=== PATIENT | male | born 1965 | race Caucasian/White ===

== ENCOUNTER → 2019-08-03 08:07 | Outpatient (CLI) | payer OTHER, SELFPAY ==
[2019-02-21 12:06] VITALS: BMI 31.6
== END ==
PROVIDERS: Family Provider Student in an Organized Health Care Education/Training Program; PCP Student in an Organized Health Care Education/Training Program; Referring Provider Physician Assistant Surgical; Visit Provider Physician Assistant Surgical
DX: Z00.00 Encounter for general adult medical examination without abnormal findings (principal); Z11.1 Encounter for screening for respiratory tuberculosis

== ENCOUNTER 2023-08-14 22:30 | Emergency (ER) | payer BC, SELFPAY ==
[2023-08-14 22:31] VITALS: BP 161/97; PULSE 89; RESP 16; TEMP 36.2; O2SAT 96; BMI 28.7
--- NOTE | 2023-08-14 23:09 | CT_ITS ---
EXAM: CT MAXILLOFACIAL WITHOUT INTRAVENOUS CONTRAST CLINICAL INDICATION: trauma, left face TECHNIQUE: Helically acquired images were obtained of the face without intravenous contrast. This CT exam was performed using one or more of the following dose reduction techniques: automated exposure control, adjustment of the mA and/or kV according to patient size, and/or use of iterative reconstruction technique. RADIATION DOSE: CTDIvol = 29.38 mGy, DLP = 576.84 mGy-cm COMPARISON: No relevant prior studies available. FINDINGS: BONES/JOINTS: Unremarkable. No displaced fracture. No discrete lytic or blastic abnormalities. SOFT TISSUES: Left periorbital, maxillary, mandibular soft tissue swelling, as well as a subcutaneous hematoma in the left maxillary region measuring 3.3 x 3 cm. ORBITS: Unremarkable. Both globes are unremarkable. Extraocular muscles are normal. Retrobulbar fat appears unremarkable. SINUSES: Unremarkable as visualized. Clear. MASTOID AIR CELLS: Unremarkable as visualized. Clear. CT/Sinus/Facial Bone IMPRESSION: 1. Left periorbital, maxillary, mandibular soft tissue swelling, as well as a subcutaneous hematoma in the left maxillary region measuring 3.3 x 3 cm. 2. No facial fractures. Electronically Signed: Elieser Carson MD at 23:49 EDT ,
--- NOTE | 2023-08-14 23:10 | CT_ITS ---
EXAM: CT HEAD WITHOUT INTRAVENOUS CONTRAST CLINICAL INDICATION: trauma TECHNIQUE: Multiple axial images were obtained of the head without intravenous contrast. This CT exam was performed using one or more of the following dose reduction techniques: automated exposure control, adjustment of the mA and/or kV according to patient size, and/or use of iterative reconstruction technique. RADIATION DOSE: CTDIvol = 44.99 mGy, DLP = 812.98 mGy-cm COMPARISON: No relevant prior studies available. FINDINGS: BRAIN AND EXTRA-AXIAL SPACES: Unremarkable. No intra- or extra-axial hemorrhage. No evidence of acute infarct. No intracranial mass or mass effect. There is preservation of the desai/white matter interface. Posterior fossa structures are unremarkable. Ventricles are appropriate for age. No hydrocephalus. Basal cisterns are patent. BONES/JOINTS: See below. SINUSES: Unremarkable as visualized. Clear. MASTOID AIR CELLS: Unremarkable. Clear. ORBITS: Left periorbital and maxillary soft tissue injury. CT/Brain/Head without Contrast IMPRESSION: 1. No acute intracranial injuries identified. 2. Left periorbital and maxillary soft tissue injury. Electronically Signed: Elieser Carson MD at 23:47 EDT ,
--- NOTE | 2023-08-15 00:12 | EDS_ITS ---
HPI History of Present Illness Chief Complaint: Head Injury Narrative Narrative: Patient is a 57-year-old male presenting with facial trauma. Patient is working on repairing a deck when he fell through a loose board about 2 to 3 feet. His face landed on a joist however. He denies any loss of conscious. He is on any blood thinners. He also sustained superficial cut to the base of his right thumb which he superglue prior to coming in. He is having significant swelling around his left eye and left cheek which is what triggered him to come in. He states he was under a lot of pressure from his family. He did take 5 mg oxycodone prior to arrival that he had leftover from a surgery earlier in the year. He notes this did help with the pain. While his eye is quite swollen on the left he states he can still see but does not notice any vision changes. Believes his last tetanus was around 5 years ago. Is not interested in an update at this time. No other complaints or concerns. No other injuries reported. Tetanus Immunization: 5-10 years [facility] Home Medications metformin 500 mg 24 hr tablet,extended release 500 mg PO BREAKFAST 12/28/16 [History Last Taken Unknown] omeprazole 20 mg capsule,delayed release 20 mg PO DAILY 12/28/16 [History Last Taken Unknown] rosuvastatin 10 mg tablet 10 mg PO QHS 12/28/16 [History Last Taken Unknown] azithromycin 250 mg tablet See Rx Instructions PO .COMPLEX #6 tabs 02/21/19 [Rx Last Taken Unknown] benzonatate 100 mg capsule 200 mg (2 x 100 mg) PO TID PRN cough #30 caps 02/21/19 [Rx Last Taken Unknown] oxycodone 5 mg tablet 5 mg PO Q8H PRN pain 3 days #10 tabs 08/15/23 [Rx Last Taken Unknown] Allergy/AdvReac Type Severity Reaction Status Date / Time No Known Allergies Allergy Verified 08/14/23 23:56 Social History Smoking Status: Never smoker alcohol intake: never ROS ROS ED Constitutional Constitutional ED: Denies chills or fever(s) Eyes Eyes: Denies blurry vision or change in vision ENT ENT ED: Reports other Details: Left facial swelling and bruising Cardiovascular Cardiovascular: Denies chest pain Respiratory/Chest Respiratory/Chest: Denies cough Gastrointestinal Gastrointestinal: Denies nausea or vomiting Musculoskeletal Musculoskeletal: Denies arthralgias or myalgias Integumentary Reports other Details: Bruising to the left face and periorbital area. Superficial abrasion to the right hand Neurologic Neurologic: Denies headache(s), paresthesias or weakness Hematologic/Lymphatic Hematologic/Lymphatic: Denies easy bleeding or easy bruising EXAM Physical Exam Const Vital Signs: 08/14/23 22:31 08/14/23 23:31 Temperature 97.1 F L Temperature Source Temporal Pulse Rate 89 Respiratory Rate 16 Respiratory Effort Normal Non-Labored Respiratory Depth Normal Respiratory Pattern Normal Blood Pressure 161/97 H Blood Pressure Mean 118 Pulse Ox 96 Oxygen Delivery Method Room Air Room Air Positive well nourished and well developed General Appearance ED: well developed and NAD HEENT Reports TM's clear HEENT Narrative: Ecchymosis and hematoma of the left cheek. There is ecchymosis noted on the buccal surface on the left. No acute dentition abnormalities. No trismus. No malocclusion. No septal hematoma. trauma Nose: Negative for septum abnormal Tympanic Membrane ED: Yes TM's clear bilateral (No hemotympanum) Eyes PERRL and EOMs intact bilaterally General Eye ED: Yes other Other Details: Significant left periorbital ecchymosis of the lower eyelid. I am able to open the eyes and there does not appear to be any subconjunctival hemorrhage, hyphema or other trauma to the eyeball itself. No pain with range of motion of the eye. Neck full ROM Resp normal respiratory effort and clear to auscultation bilaterally Cardio regular rhythm Rate: regular rate GI normal to inspection, nondistended, normoactive bowel sounds Back/Spine normal to inspection and no thoracic nor lumbar tenderness Thoracic Spine / Upper Back: Negative for thoracic spinal tenderness Extremity normal to inspection and full ROM General Extremety ED: Negative for deformity or tenderness General Extremity: Negative for deformity Neuro oriented x3, moves all extremities, no focal motor deficits and no sensory deficits noted Psych mental status grossly normal and thought process normal Skin Skin Narrative: 2 cm superficial well approximated abrasion/laceration at the base of the right thumb. There is superglue overlying it , previously applied by the patient. MDM MDM MDM Narrative Medical decision making narrative: Patient is evaluated for facial trauma. Significant ecchymosis and hematoma. CT of the brain as well as facial bones are obtained which did not show any acute intracranial bleed or facial fracture. Patient is not on any blood thinners and I do not suspect an expanding hematoma. He has no significant change throughout his ER visit. Will be treated symptomatically with ice, NSAIDs and given a prescription for short course of pain medicine (oxycodone). He has no other significant injuries. Declines tetanus update in the ER stating that he knows he is within 10 years. Given return precautions. Counseled on the typical healing course of this type of bruising and hematoma. Patient and verbalized agreement understand this plan. Discharged home in stable condition. Differential diagnosis Facial contusion, facial fracture, traumatic brain injury Radiography Diagnostic Testing: Clinical Impression(s) from Imaging Studies Facial/Sinus 08/14/23 23:09 IMPRESSION: 1. Left periorbital, maxillary, mandibular soft tissue swelling, as well as a subcutaneous hematoma in the left maxillary region measuring 3.3 x 3 cm. 2. No facial fractures. Electronically Signed: Elieser Carson MD at 23:49 EDT Reading Location ID and State: [employer] / [place] Tel , Service support , Brain CT 08/14/23 23:10 IMPRESSION: 1. No acute intracranial injuries identified. 2. Left periorbital and maxillary soft tissue injury. Electronically Signed: Elieser Carson MD at 23:47 EDT Reading Location ID and State: [employer] [facility] / [place] Tel , Service support , Discharge Plan Triage Chief Complaint: Head Injury ED Provider: Laxmi Arcos Dx/Rx/DC Orders Clinical Impression: Traumatic hematoma of face, Superficial laceration of right hand, Periorbital ecchymosis of left eye, Contusion of face Instructions: ED Facial Contusion, ED Hematoma Prescriptions: New oxycodone 5 mg tablet 5 mg PO Q8H PRN (Reason: pain) 3 Days Qty: 10 0RF No Action azithromycin 250 mg tablet See Rx Instructions PO .COMPLEX Qty: 6 0RF Dose Instruction: take 500 mg today (day 1), then 250 mg for 4 days (days 2-5) PO Rx Instructions: take 500 mg today (day 1), then 250 mg for 4 days (days 2-5) PO benzonatate 100 mg capsule 200 mg PO TID PRN (Reason: cough) Qty: 30 0RF omeprazole 20 MG capsule 20 mg PO DAILY Patient Comments: ACID REFLUX rosuvastatin 10 MG tablet 10 mg PO QHS Patient Comments: CHOLESTEROL metformin 500 MG tablet,ER jamaal.retention 24 hr 500 mg PO BREAKFAST Patient Comments: DIABETES Primary Care Provider: Gordo Domínguez Referrals: Gordo Domínguez DO [Primary Care Provider] - Activity Restrictions/Additional Instructions: Continue to ice for the next 24 to 48 hours. The swelling might change and move due to gravity and positioning of your head when you sleep especially over the next few weeks. This is all still considered normal. It would take weeks for this to fully resolve if not a month or 2. You may also take ibuprofen and Tylenol for pain. You been prescribed oxycodone for more severe pain as needed for the first few days Disposition Disposition: Home, Self Care Discharge Date/Time: 08/15/23 00:24
== END 2023-08-15 00:24 | disposition home or self-care (01) ==
PROVIDERS: Emergency Provider Emergency Medicine; PCP Student in an Organized Health Care Education/Training Program; Visit Provider Emergency Medicine
DX: S61.411A Laceration without foreign body of right hand, initial encounter (principal); S05.12XA Contusion of eyeball and orbital tissues, left eye, initial encounter; W17.89XA Other fall from one level to another, initial encounter
CPT/HCPCS: 70450; 70486; 99282